=== PATIENT | male | born 1990 | race Caucasian/White ===

== ENCOUNTER 2020-03-14 12:39 | Emergency (ER) | payer OTHER ==
[~2020-03-14] VITALS: Ht 182.9 cm; Wt 95.9 kg
[2020-03-14 12:52] VITALS: BP 166/98
[2020-03-14] MEDS ORDERED: CLON-529 PO (13:23)
[2020-03-14] MEDS ORDERED: LORA-269 PO (13:23)
[2020-03-14] MEDS ORDERED: GABA300C PO (13:23)
== END 2020-03-14 13:46 | disposition home or self-care (01) ==
LOC: ER 12:40
DX: F10.10 Alcohol abuse, uncomplicated (principal); Z00.00 Encounter for general adult medical examination without abnormal findings; Z79.2 Long term (current) use of antibiotics; Z79.899 Other long term (current) drug therapy
CPT/HCPCS: 99283